=== PATIENT | female | born 1950 | race Caucasian/White ===

== ENCOUNTER 2017-12-03 13:44 | Emergency (ER) | payer MEDICARE, OTHER ==
[~2017-12-03 13:44] MED LIST: ASPI325T PO; CIPR500T4 PO; LISI-360 PO; LORA0.5T PO; MULT-65 PO; PROBCAP4 PO; PYRI200T4 PO; SERT-129 PO; SIMV10 PO; TRAM50 PO
[2017-12-03 13:45] VITALS: BP 188/82; PULSE 91; RESP 18; TEMP 98.7; O2SAT 94
[2017-12-03] MEDS ORDERED: methylPREDNISolone SOD SUCC 125 MG/2 ML VIAL IV PUSH ONE (14:00)
[2017-12-03] MEDS ORDERED: ASPI-183 PO (14:02)
[2017-12-03] MEDS ORDERED: VENTAER INH (14:02)
[2017-12-03] MEDS ORDERED: ZOLO50TA PO (14:02)
[2017-12-03] MEDS ORDERED: SIMV80TA PO (14:02)
[2017-12-03] MEDS ORDERED: BUPR150T3 PO (14:02)
[2017-12-03] MEDS ORDERED: LISI10TA3 PO (14:02)
[2017-12-03] MEDS ORDERED: LORA-392 PO (14:02)
--- NOTE | 2017-12-03 14:06 | PD ---
HPI Chief Complaint: Respiratory Symptoms Time Seen by Provider: 14:00 Travel History International Travel<30 days: No Contact w/Intl Traveler<30days: No Traveled to known affect area: No History of Present Illness HPI Patient presents with complaints of shortness of breath since last night. Reports associated cough. Denies any significant history of COPD however she states this has happened before. Denies any nausea vomiting diarrhea or fever. No new rashes. Smoked many years ago. PFSH Past Medical History Hx Anticoagulant Therapy: Yes (ASA 81MG DAILY) Cancer: Yes (SKIN, REMOVED) Cardiovascular Problems: Yes High Cholesterol: Yes COPD: Yes Cerebrovascular Accident: Yes Hypertension: Yes Shingles: Yes Tetanus Vaccination: > 5 Years Influenza Vaccination: No ?: Not Menopausal: Yes Past Surgical History Appendectomy: Yes Section: Yes (X4) Cholecystectomy: Yes Tonsillectomy: Yes Other Surgery: Yes (endocardectomy) Social History Alcohol Use: Yes (3-4 BEERS, 2-3 TIMES PER WEEK; LAST DRINK 01/26/16) Tobacco Use: No (QUIT 1985) Substance Use: No Allergies-Medications (Allergen,Severity, Reaction): Coded Allergies: morphine (Unverified Allergy, Severe, ITCHING, 12/03/17) penicillin G (Unverified Allergy, Severe, "SKIN PEELS OFF", 12/03/17) Reported Meds & Prescriptions Reported Meds & Active Scripts Active Reported Bupropion HCl ER 24 HR (Bupropion HCl) 150 Mg Tab 150 Mg PO DAILY Lisinopril 10 Mg Tab 10 Mg PO DAILY Ativan (Lorazepam) 0.5 Mg Tab 0.5 Mg PO DAILY PRN Simvastatin 80 Mg Tab 80 Mg PO DAILY Zoloft (Sertraline HCl) 50 Mg Tab 75 Mg PO DAILY Aspirin 325 Mg Tab 325 Mg PO DAILY Ventolin Hfa 18 GM Inh (Albuterol Sulfate) 90 Mcg/Act Aer 1 Puff INH Q4H PRN Review of Systems General / Constitutional: No: Fever Eyes: No: Visual changes HENT: No: Headaches Cardiovascular: No: Chest Pain or Discomfort Respiratory: Positive: Cough, Shortness of Breath Gastrointestinal: No: Abdominal Pain Genitourinary: No: Dysuria Musculoskeletal: No: Pain Skin: No Rash Neurologic: No: Weakness Psychiatric: No: Depression Endocrine: No: Polydipsia Hematologic/Lymphatic: No: Easy Bruising Physical Exam Narrative GENERAL: Well-nourished, well-developed patient. SKIN: Focused skin assessment warm/dry. HEAD: Normocephalic. EYES: No scleral icterus. No injection or drainage. NECK: Supple, trachea midline. No JVD or lymphadenopathy. CARDIOVASCULAR: Regular rate and rhythm without murmurs, gallops, or rubs. RESPIRATORY: Decreased breath sounds right lower lobe with end expiratory wheeze. No accessory muscle use. GASTROINTESTINAL: Abdomen soft, non-tender, nondistended. MUSCULOSKELETAL: No cyanosis, or edema. BACK: Nontender without obvious deformity. No CVA tenderness. Data Data Last Documented VS Vital Signs Date Time Temp Pulse Resp B/P (MAP) Pulse Ox O2 Delivery O2 Flow Rate FiO2 12/03/17 14:16 96 Room Air 12/03/17 13:45 98.7 91 18 188/82 (117) Orders Orders Complete Blood Count With Diff (12/03/17 14:00) Influenzae A/B Antigen (12/03/17 14:00) Iv Access Insert/Monitor (12/03/17 14:00) Ecg Monitoring (12/03/17 14:00) Oximetry (12/03/17 14:00) Oxygen Administration (12/03/17 14:00) Chest, Single Ap (12/03/17 14:00) Methylprednisolone So Succ Inj (Solumedr (12/03/17 14:00) Albuterol-Ipratropium Neb (Duoneb Neb) (12/03/17 14:00) Azithromycin Inj (Zithromax Inj) (12/03/17 14:15) Labs Laboratory Tests Test 12/03/17 14:15 White Blood Count 11.9 TH/MM3 Red Blood Count 4.28 MIL/MM3 Hemoglobin 14.4 GM/DL Hematocrit 42.5 % Mean Corpuscular Volume 99.3 FL Mean Corpuscular Hemoglobin 33.5 PG Mean Corpuscular Hemoglobin Concent 33.7 % Red Cell Distribution Width 12.3 % Platelet Count 200 TH/MM3 Mean Platelet Volume 10.4 FL Neutrophils (%) (Auto) 74.1 % Lymphocytes (%) (Auto) 13.1 % Monocytes (%) (Auto) 7.7 % Eosinophils (%) (Auto) 3.9 % Basophils (%) (Auto) 1.2 % Neutrophils # (Auto) 8.8 TH/MM3 Lymphocytes # (Auto) 1.6 TH/MM3 Monocytes # (Auto) 0.9 TH/MM3 Eosinophils # (Auto) 0.5 TH/MM3 Basophils # (Auto) 0.1 TH/MM3 CBC Comment DIFF FINAL Differential Comment MDM Medical Decision Making Medical Screen Exam Complete: Yes Emergency Medical Condition: Yes Differential Diagnosis COPD exacerbation, pneumonia, asthma, bronchitis Narrative Course Assessment and plan discussed with patient and son at bedside. Leukocytosis is noted, patient received IV antibiotics and breathing treatments with improvement of breath sounds in the right lower lobe Diagnosis Primary Impression: Pneumonia Qualified Codes: J18.1 - Lobar pneumonia, unspecified organism Additional Instructions: Patient has MDI, continue as needed, oral antibiotics and steroid as prescribed. Encouraged rest fluids and Motrin, consider vitamin C and zinc, follow-up with PCP. Return to emergency room with any onset of new symptoms. Med/Other Pt SpecificInfo: Prescription(s) given Scripts Prednisone (21) 10 mg tab Dose Pack (Prednisone (21) 10 mg tab Dose Pack) 10 Mg Pack 10 MG PO DIRECTED for Inflammation, #1 DSPK 0 Refills Prov: Dat Wang MD 12/03/17 Azithromycin (Zithromax) 500 Mg Tab 500 MG PO DAILY for Infection for 7 Days, #7 TAB 0 Refills Prov: Dat Wang MD 12/03/17 Disposition: 01 DISCHARGE HOME Condition: Good Dat Wang MD Dec 03, 2017 14:06
[2017-12-03] MEDS: RESP: ALBUTEROL 2.5 MG/IPRATROPIUM 0.5 MG NEB (SCH) INH ×2 (14:09→14:16)
[2017-12-03] MEDS ORDERED: AZITHROMYCIN INJ 500 MG in SODIUM CHLOR 0.9% 250 ML INJ 250 ML IV ONE (14:15)
[2017-12-03 14:16] VITALS: O2SAT 96
[2017-12-03 14:31] LABS: AUTOMATED NEUTROPHIL # 8.8 TH/MM3 (1.8-7.7); BASOPHIL # 0.1 TH/MM3 (0-0.2); BASOPHIL % 1.2 % (0.0-2.0); EOSINOPHIL # 0.5 TH/MM3 (0-0.4); EOSINOPHIL % 3.9 % (0.0-4.0); HEMATOCRIT 42.5 % (35.0-46.0); HEMOGLOBIN 14.4 GM/DL (11.6-15.3); LYMPH % 13.1 % (9.0-44.0); LYMPHOCYTE # 1.6 TH/MM3 (1.0-4.8); MEAN CELL VOLUME 99.3 FL (80.0-100.0); MEAN CORPUSCULAR HEMOGLOBIN 33.5 PG (27.0-34.0); MEAN CORPUSCULAR HGB CONC 33.7 % (32.0-36.0); MEAN PLATELET VOLUME 10.4 FL (7.0-11.0); MONO % 7.7 % (0.0-8.0); MONOCYTE # 0.9 TH/MM3 (0-0.9); NEUT % 74.1 % (16.0-70.0); PLATELET COUNT 200 TH/MM3 (150-450); RED BLOOD COUNT 4.28 MIL/MM3 (4.00-5.30); RED CELL DISTRIBUTION WIDTH 12.3 % (11.6-17.2); WHITE BLOOD COUNT 11.9 TH/MM3 (4.0-11.0)
--- NOTE | 2017-12-03 14:51 | RADRPT ---
EXAM DATE/TIME: 12/03/2017 14:37 [facility] COMPARISON: CHEST SINGLE AP, January 28, 2016, 14:30. INDICATIONS : Shortness of breath on and off. MEDICAL HISTORY : Hypertension. Hypercholesterolemia. SURGICAL HISTORY : None. ENCOUNTER: Initial ACUITY: 2 days PAIN SCORE: 0/10 LOCATION: Bilateral chest FINDINGS: A single view of the chest demonstrates the lungs to be symmetrically aerated without evidence of mas s, infiltrate or effusion. The cardiomediastinal contours are unremarkable. Osseous structures are intact. CONCLUSION: No acute disease. No significant change has occurred. Ken Stephenson MD on December 03, 2017 at 14:50 Board Certified Radiologist. This report was verified electronically.
[2017-12-03] MEDS ORDERED: PRED10PA PO (14:57)
[2017-12-03] MEDS ORDERED: ZITH500T PO (14:57)
[2017-12-03 16:11] VITALS: BP 160/88
== END 2017-12-03 16:14 | disposition home or self-care (01) ==
LOC: PHED 13:44
DX: J18.9 Pneumonia, unspecified organism (principal); D72.829 Elevated white blood cell count, unspecified; E78.00 Pure hypercholesterolemia, unspecified; J44.9 Chronic obstructive pulmonary disease, unspecified; I10 Essential (primary) hypertension; Z79.82 Long term (current) use of aspirin; Z79.899 Other long term (current) drug therapy; Z86.73 Personal history of transient ischemic attack (TIA), and cerebral infarction without residual deficits; Z88.5 Allergy status to narcotic agent
CPT/HCPCS: 71045; 85025; 87804; 94640; 94664; 96365; 96375; 99284; J0456; J2930; J7050

== ENCOUNTER → 2018-01-18 | Outpatient (CLI) | payer MEDICARE ==
[~2018-01-18] MED LIST changes: +ASPI-183 PO; -ASPI325T PO; +BUPR150T3 PO; -CIPR500T4 PO; -LISI-360 PO; +LISI10TA3 PO; +LORA-392 PO; -LORA0.5T PO; -MULT-65 PO; +PRED10PA PO; -PROBCAP4 PO; -PYRI200T4 PO; -SERT-129 PO; -SIMV10 PO; +SIMV80TA PO; -TRAM50 PO; +VENTAER INH; +ZITH500T PO; +ZOLO50TA PO
--- NOTE | 2018-01-19 09:32 | RSPPFT ---
DATE OF PROCEDURE: 01/18/18 COMMENTS: Spirometry shows FVC of 2.7 at 107% of predicted, FEV1 of 1.8 at 91%, FEV1/FVC ratio is decreased. Flow is decreased at FEF 25, FEF 50, FEF 75 and FEF 25-75. There is no response after bronchodilator treatment. Lung volumes show residual volume is increased. TLC is increased. Diffusion capacity is normal. Flow volume loop indicates an obstructive pattern. Room air arterial blood gases show pH of 7.39, PCO2 of 42, PO2 of 79, BiCarb of 25, O2 Saturation of 94%. 6-minute walk test shows no-desaturation. IMPRESSION: 1. Mild obstructive lung disease. 2. No response after bronchodilator treatment. 3. Lung volumes show hyperinflation. 4. Normal diffusion capcity. 5. Blood gases show normal oxygenation. 6. 6-minute walk test shows no de-saturation.
== END ==
LOC: PHRSP 08:24
PROVIDERS: ATTEND Specialist
DX: J44.9 Chronic obstructive pulmonary disease, unspecified (principal)
CPT/HCPCS: 36600; 82805; 94060; 94618; 94726; 94729

== ENCOUNTER 2018-02-26 18:08 | Emergency (ER) | payer MEDICARE ==
[~2018-02-26] VITALS: Ht 154.9 cm; Wt 87.2 kg
[2018-02-26 18:24] VITALS: BP 214/85; PULSE 68; RESP 18; TEMP 97.9
[2018-02-26] MEDS ORDERED: SYMB80AE INH (18:51)
[2018-02-26] MEDS ORDERED: SODIUM CHLOR 0.9% 1000 ML INJ 1,000 ML IV ONE (18:56)
[2018-02-26] MEDS ORDERED: PROCHLORPERAZINE INJ 10 MG/2 ML VIAL IVP ONE (19:00)
[2018-02-26] MEDS ORDERED: SODIUM CHLORIDE 0.9% FLUSH 10 ML FLUSH IVF PRN (19:00)
[2018-02-26] MEDS ORDERED: diphenhydrAMINE HCL 50 MG/ML VIAL IVP ONE (19:00)
[2018-02-26 20:13] LABS: BILIRUBIN, URINE NEG (NEG); BLOOD, URINE NEG (NEG); GLUCOSE,URINE NEG (NEG); KETONE, URINE NEG (NEG); NITRITE,URINE NEG (NEG); URINE COLOR YELLOW (YELLW/STRAW); URINE LEUKOCYTE ESTERASE TRACE (NEG)
[2018-02-26 20:17] LABS: AUTOMATED NEUTROPHIL # 4.6 TH/MM3 (1.8-7.7); BASOPHIL # 0.2 TH/MM3 (0-0.2); BASOPHIL % 2.1 % (0.0-2.0); EOSINOPHIL # 0.3 TH/MM3 (0-0.4); EOSINOPHIL % 4.5 % (0.0-4.0); HEMATOCRIT 45.3 % (35.0-46.0); HEMOGLOBIN 16.1 GM/DL (11.6-15.3); LYMPH % 23.1 % (9.0-44.0); LYMPHOCYTE # 1.8 TH/MM3 (1.0-4.8); MEAN CELL VOLUME 96.6 FL (80.0-100.0); MEAN CORPUSCULAR HEMOGLOBIN 34.3 PG (27.0-34.0); MEAN CORPUSCULAR HGB CONC 35.5 % (32.0-36.0); MONO % 9.3 % (0.0-8.0); MONOCYTE # 0.7 TH/MM3 (0-0.9); PLATELET COUNT 182 TH/MM3 (150-450); RED BLOOD COUNT 4.69 MIL/MM3 (4.00-5.30); RED CELL DISTRIBUTION WIDTH 11.3 % (11.6-17.2); WHITE BLOOD COUNT 7.6 TH/MM3 (4.0-11.0)
[2018-02-26 20:18] LABS: CHLORIDE 106 MEQ/L (98-107); SODIUM (NA) 140 MEQ/L (136-145)
[2018-02-26 20:19] LABS: RBC, URINE 0-3 /hpf (0-3); SQUAMOUS EPITHELIAL CELL URINE 0-5 /hpf (0-5); WBC, URINE 0-2 /hpf (0-5)
[2018-02-26 20:22] LABS: CALCIUM 9.6 MG/DL (8.5-10.1)
[2018-02-26 20:23] LABS: ALBUMIN 3.6 GM/DL (3.4-5.0); BICARBONATE 27.8 MEQ/L (21.0-32.0); BLOOD UREA NITROGEN 12 MG/DL (7-18); GLUCOSE,RANDOM 86 MG/DL (74-106)
[2018-02-26 20:26] LABS: ALT (GPT) 67 U/L (10-53); AST (GOT) 67 U/L (15-37); CREATININE 0.53 MG/DL (0.50-1.00); GLOMERULAR FILTRATION RATE 114 ML/MIN (>89)
[2018-02-26 20:28] LABS: TOTAL BILIRUBIN ADULT 0.8 MG/DL (0.2-1.0); TOTAL PROTEIN 8.2 GM/DL (6.4-8.2)
[2018-02-26 20:29] LABS: ALKALINE PHOSPHATASE 137 U/L (45-117)
[2018-02-26 20:34] LABS: INTERNATIONAL NORMALIZED RATIO 1.1 RATIO; PROTHROMBIN TIME - PATIENT 10.7 SEC (9.8-11.6)
--- NOTE | 2018-02-26 20:37 | PD ---
HPI Chief Complaint: Headache Time Seen by Provider: 18:38 Travel History International Travel<30 days: No Contact w/Intl Traveler<30days: No Traveled to known affect area: No History of Present Illness HPI 67-year-old female complains of headache for 2 weeks. Location is frontal. Quality is like a vice. Patient reports dizziness at the grocery store. She felt as if she were to pass out however did not lose consciousness. She had no chest pain or palpitations at that time. She has no history of headaches. She reports drinking alcohol her whole life until 2 months ago and ever since stopping she has felt miserable. She reports recently undergoing a diagnosis for hemochromatosis and evidently was diagnosed with it. She reports an upcoming appointment with GI in about 2 weeks. No neck stiffness. No fever. No numbness tingling or weakness. PFSH Past Medical History Hx Anticoagulant Therapy: Yes (ASA 81MG DAILY) Cancer: Yes (SKIN, REMOVED) Cardiovascular Problems: Yes High Cholesterol: Yes COPD: Yes Cerebrovascular Accident: Yes Hypertension: Yes Shingles: Yes Tetanus Vaccination: > 5 Years Influenza Vaccination: No Menopausal: Yes Past Surgical History Appendectomy: Yes Section: Yes (X4) Cholecystectomy: Yes Tonsillectomy: Yes Other Surgery: Yes (endocardectomy) Social History Alcohol Use: Yes (HX OF DAILY USE, QUIT [id number]) Tobacco Use: No (QUIT 1985) Substance Use: No Allergies-Medications (Allergen,Severity, Reaction): Coded Allergies: morphine (Verified Allergy, Severe, ITCHING, 02/26/18) penicillin G (Verified Allergy, Severe, "SKIN PEELS OFF", 02/26/18) Reported Meds & Prescriptions Reported Meds & Active Scripts Active Reported Symbicort Inh (Budesonide/Formoterol Fumarate) 80-4.5 Mcg/Act Aero 1 Puff INH Q12HR Bupropion HCl ER 24 HR (Bupropion HCl) 150 Mg Tab 150 Mg PO DAILY Lisinopril 10 Mg Tab 10 Mg PO DAILY Ativan (Lorazepam) 0.5 Mg Tab 0.5 Mg PO DAILY PRN Simvastatin 80 Mg Tab 80 Mg PO DAILY Zoloft (Sertraline HCl) 50 Mg Tab 75 Mg PO DAILY Aspirin 325 Mg Tab 325 Mg PO DAILY Ventolin Hfa 18 GM Inh (Albuterol Sulfate) 90 Mcg/Act Aer 1 Puff INH Q4H PRN Review of Systems Except as stated in HPI: all other systems reviewed are Neg General / Constitutional: No: Fever Physical Exam Narrative GENERAL: 67-year-old female pleasant well-nourished well-developed no acute distress Vital Signs Date Time Temp Pulse Resp B/P (MAP) Pulse Ox O2 Delivery O2 Flow Rate FiO2 02/26/18 18:24 97.9 68 18 214/85 (128) SKIN: Warm and dry. HEAD: Atraumatic. Normocephalic. EYES: Pupils equal and round. No scleral icterus. No injection or drainage. ENT: No nasal bleeding or discharge. Mucous membranes pink and moist. NECK: Trachea midline. No JVD. CARDIOVASCULAR: Regular rate and rhythm. RESPIRATORY: No accessory muscle use. Clear to auscultation. Breath sounds equal bilaterally. GASTROINTESTINAL: Abdomen soft, non-tender, nondistended. Hepatic and splenic margins not palpable. MUSCULOSKELETAL: Extremities without clubbing, cyanosis, or edema. No obvious deformities. NEUROLOGICAL: Awake and alert. No obvious cranial nerve deficits. Motor grossly within normal limits. Five out of 5 muscle strength in the arms and legs. Normal speech. PSYCHIATRIC: Appropriate mood and affect; insight and judgment normal. Data Data Last Documented VS Vital Signs Date Time Temp Pulse Resp B/P (MAP) Pulse Ox O2 Delivery O2 Flow Rate FiO2 02/26/18 20:42 66 16 160/72 (101) 96 Room Air 02/26/18 18:24 97.9 Orders Orders Complete Blood Count With Diff (02/26/18 18:56) Comprehensive Metabolic Panel (02/26/18 18:56) Prothrombin Time / Inr (Pt) (02/26/18 18:56) Act Partial Throm Time (Ptt) (02/26/18 18:56) Ct Brain W/O Iv Contrast(Rout) (02/26/18 18:56) Ecg Monitoring (02/26/18 18:56) Iv Access Insert/Monitor (02/26/18 18:56) Oximetry (02/26/18 18:56) Sodium Chloride 0.9% Flush (Ns Flush) (02/26/18 19:00) Prochlorperazine Inj (Compazine Inj) (02/26/18 19:00) Diphenhydramine Inj (Benadryl Inj) (02/26/18 19:00) Sodium Chlor 0.9% 1000 Ml Inj (Ns 1000 M (02/26/18 18:56) Urinalysis - C+S If Indicated (02/26/18 18:56) Ed Discharge Order (02/26/18 20:52) Labs Laboratory Tests Test 02/26/18 19:50 White Blood Count 7.6 TH/MM3 Red Blood Count 4.69 MIL/MM3 Hemoglobin 16.1 GM/DL Hematocrit 45.3 % Mean Corpuscular Volume 96.6 FL Mean Corpuscular Hemoglobin 34.3 PG Mean Corpuscular Hemoglobin Concent 35.5 % Red Cell Distribution Width 11.3 % Platelet Count 182 TH/MM3 Mean Platelet Volume 10.0 FL Neutrophils (%) (Auto) 61.0 % Lymphocytes (%) (Auto) 23.1 % Monocytes (%) (Auto) 9.3 % Eosinophils (%) (Auto) 4.5 % Basophils (%) (Auto) 2.1 % Neutrophils # (Auto) 4.6 TH/MM3 Lymphocytes # (Auto) 1.8 TH/MM3 Monocytes # (Auto) 0.7 TH/MM3 Eosinophils # (Auto) 0.3 TH/MM3 Basophils # (Auto) 0.2 TH/MM3 CBC Comment DIFF FINAL Differential Comment Prothrombin Time 10.7 SEC Prothromb Time International Ratio 1.1 RATIO Activated Partial Thromboplast Time 26.5 SEC Urine Color YELLOW Urine Turbidity CLEAR Urine pH 6.0 Urine Specific [place] 1.020 Urine Protein NEG mg/dL Urine Glucose (UA) NEG mg/dL Urine Ketones NEG mg/dL Urine Occult Blood NEG Urine Nitrite NEG Urine Bilirubin NEG Urine Urobilinogen 0.2 MG/DL Urine Leukocyte Esterase TRACE Urine RBC 0-3 /hpf Urine WBC 0-2 /hpf Urine Squamous Epithelial Cells 0-5 /hpf Urine Bacteria NONE /hpf Microscopic Urinalysis Comment CULT NOT INDICATED Blood Urea Nitrogen 12 MG/DL Creatinine 0.53 MG/DL Random Glucose 86 MG/DL Total Protein 8.2 GM/DL Albumin 3.6 GM/DL Calcium Level 9.6 MG/DL Alkaline Phosphatase 137 U/L Aspartate Amino Transf (AST/SGOT) 67 U/L Alanine Aminotransferase (ALT/SGPT) 67 U/L Total Bilirubin 0.8 MG/DL Sodium Level 140 MEQ/L Potassium Level 4.0 MEQ/L Chloride Level 106 MEQ/L Carbon Dioxide Level 27.8 MEQ/L Anion Gap 6 MEQ/L Estimat Glomerular Filtration Rate 114 ML/MIN MDM Medical Decision Making Medical Screen Exam Complete: Yes Emergency Medical Condition: Yes Medical Record Reviewed: Yes Differential Diagnosis Migraine, dehydration, hemochromatosis Narrative Course CBC & BMP Diagram 02/26/18 19:50 Total Protein 8.2, Albumin 3.6, Calcium Level 9.6, Alkaline Phosphatase 137 H, Aspartate Amino Transf (AST/SGOT) 67 H, Alanine Aminotransferase (ALT/SGPT) 67 H , Total Bilirubin 0.[address] reveals no acute injury, atrophy is observed Time of reassessment: 8:50 PM. The patient is resting comfortably and feels better, is alert and in no distress. The patients results and examination findings were discussed. The repeat examination is unremarkable and benign. The history, exam, diagnostic testing, and current condition do not suggest any significant pathology to warrant further testing, continued ED treatment, admission, or surgical evaluation at this point. The vital signs have been stable. The patient does not have uncontrollable pain, intractable vomiting, or other significant symptoms. The patient's condition is stable and appropriate for discharge. The patient will pursue further outpatient evaluation with a primary care physician or other designated or consulting physician as indicated in the discharge instructions. The patient expressed understanding and was agreeable with this plan. Diagnosis Primary Impression: Cephalgia Qualified Codes: R51 - Headache Referrals: [facility] call for appointment Med/Other Pt SpecificInfo: Prescription(s) given Scripts Promethazine (Phenergan) 25 Mg Tablet 25 MG PO Q6H Y for HEADACHE, #10 TAB 0 Refills Prov: Yao Larios MD 02/26/18 Disposition: 01 DISCHARGE HOME Condition: Stable Yao Larios MD February 26, 2018 20:37
[2018-02-26 20:41] VITALS: RESP 16; O2SAT 95
[2018-02-26 20:42] VITALS: BP 160/72; PULSE 66; RESP 16; O2SAT 96
--- NOTE | 2018-02-26 20:48 | RADRPT ---
EXAM DATE/TIME: 02/26/2018 20:15 [facility] COMPARISON: CT BRAIN W/O CONTRAST, January 28, 2016, 14:31. INDICATIONS : Cephalgia. Weakness. RADIATION DOSE: 47.24 CTDIvol (mGy) MEDICAL HISTORY : Hypertension. Cerebrovascular disease. SURGICAL HISTORY : None. ENCOUNTER: Initial ACUITY: 3 weeks PAIN SCALE: 7/10 LOCATION: Bilateral cranial TECHNIQUE: Multiple contiguous axial images were obtained of the head. Using automated exposure control and adj ustment of the mA and/or kV according to patient size, radiation dose was kept as low as reasonably a chievable to obtain optimal diagnostic quality images. DICOM format image data is available electro nically for review and comparison. FINDINGS: CEREBRUM: Atrophy. The ventricles are normal for age. No evidence of midline shift, mass lesion, hemorrhage or acute infarction. No extra-axial fluid collections are seen. POSTERIOR FOSSA: The cerebellum and brainstem are intact. The 4th ventricle is midline. The cerebellopontine angle i s unremarkable. EXTRACRANIAL: The visualized portion of the orbits is intact. SKULL: The calvaria is intact. No evidence of skull fracture. CONCLUSION: 1. No acute intracranial abnormality. 2. Atrophy. Favian Preciado Jr., MD on February 26, 2018 at 20:45 Board Certified Radiologist. This report was verified electronically.
[2018-02-26] MEDS ORDERED: PROM25TA10 PO (20:54)
== END 2018-02-26 21:15 | disposition home or self-care (01) ==
LOC: PHED 18:08
DX: R51 Headache (principal); E83.119 Hemochromatosis, unspecified; I10 Essential (primary) hypertension; J44.9 Chronic obstructive pulmonary disease, unspecified; E78.00 Pure hypercholesterolemia, unspecified; Z79.82 Long term (current) use of aspirin; Z88.5 Allergy status to narcotic agent; Z88.0 Allergy status to penicillin
CPT/HCPCS: 70450; 80053; 81001; 85025; 85610; 85730; 96361; 96374; 96375; 99284; J0780; J1200; J7030

== ENCOUNTER 2018-03-27 06:20 | Day surgery (SDC) | payer MEDICARE ==
[2018-03-27] VITALS (8 sets, daily range): BP systolic 131–189; BP diastolic 64–97; PULSE 61–73; RESP 18–20; TEMP 97.7–98.2; O2SAT 92–100
[~2018-03-27] VITALS: Ht 154.9 cm; Wt 84.5 kg
[~2018-03-27 06:20] MED LIST changes: -PRED10PA PO; +PROM25TA10 PO; +SYMB80AE INH; -ZITH500T PO
[2018-03-27] MEDS ORDERED: ASPI81CH6 CHEW (07:12)
[2018-03-27] MEDS ORDERED: CIME300T PO (07:12)
[2018-03-27] MEDS ORDERED: fentaNYL CITRATE 250 MCG/5 ML AMP ONE (07:33)
[2018-03-27] MEDS ORDERED: MIDAZOLAM HCL 5 MG/5 ML VIAL ONE (07:33)
[2018-03-27] MEDS ORDERED: SODIUM CHLOR 0.9% 1000 ML IV SCH (07:45)
--- NOTE | 2018-03-27 08:46 | PD.RAD ---
Post CT Procedure Prog Note Pre Procedure Diagnosis: (1) Elevated LFTs Post Procedure Diagnosis: (1) Elevated LFTs Procedure Date: Mar 27, 2018 Supervising Radiologist: Yan Chaney Anesthesia: Conscious Sedation Plan of Activity Patient to Unit: ROPU Patient Condition: Good See PACS Report for procedural detail/treatment Biopsy Imaging Guidance: CT Side: Right Biopsy Procedure: Liver Specimen: Core Biopsy Plan to ROPU then discharge in 4 hours. Yan Chaney MD Mar 27, 2018 08:46
--- NOTE | 2018-03-27 09:25 | RADRPT ---
EXAM DATE: 03/27/2018 8:56 AM EDT AGE/SEX: 67 years / Female INDICATIONS: Elevated liver function. CLINICAL DATA: This is the patient's initial encounter. Patient reports that signs and symptoms have been present for 1 day and indicates a pain score of 0/10. MEDICAL/SURGICAL HISTORY: Hypertension. Appendectomy. section. Cholecystectomy. COMPARISON: No prior exams available for comparison. BIOPSY SITE: Right liver MEDICATION(S): 2.5mg midazolam (Versed) IV 125mcg fentanyl (Sublimaze) IV DEVICE(S): 18 gauge BARD biopsy needle Two . . PROCEDURE: CT guided Right liver biopsy Prior to the procedure informed consent was obtained. Any appropriate prior imaging studies were rev iewed. Using automated exposure control and adjustment of the mA and/or kV according to patient size, radiat ion dose was kept as low as reasonably achievable to obtain optimal diagnostic quality images. DICOM format image data is available electronically for review and comparison. The site was prepped in a sterile fashion. Full sterile technique was used, including cap, mask, azeem rile gloves and gown and a large sterile sheet. Hand hygiene and 2% chlorhexidine and/or betadine/al cohol prep was utilized per protocol for cutaneous antisepsis. The skin and subcutaneous tissues wer e infiltrated with local anesthetic solution. With CT guidance the right lobe of the liver was localized. Biopsy was performed using the prescribed needle as above. Adequate hemostasis was obtained with compression at the puncture site. Follow-up CT scan reveals no hemorrhage. Liver density indicates steatosis. The patient tolerated the procedure well and there were no complications. The patient was returned to the Radiology Outpatient Unit in stable condition. FINDINGS: Abnormal decreased liver density indicates steatosis. CONCLUSION: 1. Uncomplicated CT guided biopsy of the liver. Electronically signed by: Yan Chaney MD 03/27/2018 9:23 AM EDT
== END 2018-03-27 12:43 | disposition home or self-care (01) ==
LOC: HRAD 06:20 → HRIP 06:43 → HRAD 12:43
PROVIDERS: ATTEND Internal Medicine Gastroenterology
DX: R74.8 Abnormal levels of other serum enzymes (principal); R79.89 Other specified abnormal findings of blood chemistry
CPT/HCPCS: 47000; 77012; 88307; 88313; 99152; 99153; J2250; J3010; J7030